=== PATIENT | male | born 1995 | race Caucasian/White ===

== ENCOUNTER → 2018-03-09 | Outpatient (CLI) | payer OTHER ==
[~2018-03-09] MED LIST: BUTA1CAP51 PO
--- NOTE | 2018-03-09 12:58 | RADIOLOGY IMAGING REPORT ---
FACILITY: [facility] - [place] PATIENT NAME: Salvatore Garvey : 1995 MR: [id number] V: [id number] EXAM DATE: ORDERING PHYSICIAN: [email or web address] LOZANO TECHNOLOGIST: Location: [facility] [place] Patient: Salvatore Garvey : 1995 Visit/Account:[id number] Date of Sevice: 03/09/2018 / SCROTAL ULTRASOUND INDICATION: Bilateral testicular pain. COMPARISON: None available. FINDINGS: Right testicle measures 5.1 x 2.3 x 3.2 cm in cc, AP, and transverse dimensions respectively. There is normal arterial and venous blood flow. Small right hydrocele. No varicocele identified. The right epididymal head measures 1.5 cm. Normal blood flow. No focal abnormality. Left testicle measures 4.6 x 2.3 x 3.3 cm in cc, AP, and transverse dimensions respectively. There is normal arterial and venous blood flow. Small left hydrocele. No varicocele identified. The left epididymal head measures 1.6 cm. Normal blood flow. No focal abnormality. The bilateral testicles appear homogenous in echogenicity. IMPRESSION: 1. Normal blood flow within the bilateral testicles with no focal abnormality. 2. Small bilateral hydrocele. Report Dictated By: Bill Perez at 03/09/2018 12:52 PM Report E-Signed By: Bill Perez at 03/09/2018 12:54 PM WSN:[id number]
== END ==
LOC: US 12:01
PROVIDERS: ATTEND Physician Assistant Medical
DX: N43.3 Hydrocele, unspecified (principal)
CPT/HCPCS: 76870

== ENCOUNTER → 2018-03-09 | Outpatient (REF) | payer OTHER ==
[2018-03-09 14:26] LABS: PLATELET COUNT, AUTOMATED 256 K/uL (150-450)
== END ==
PROVIDERS: ATTEND Physician Assistant Medical
DX: N50.819 Testicular pain, unspecified (principal)
CPT/HCPCS: 85025